=== PATIENT | male | born 1990 | race Two or more races ===

== ENCOUNTER 2016-08-27 12:55 | Emergency (ER) | payer SELFPAY ==
[~2016-08-27 12:55] MED LIST: AMOX500C PO; CIPR10DR AD
[2016-08-27] MEDS ORDERED: ONDANSETRON PF 4 MG/2 ML VIAL. IV ONE (14:00)
[2016-08-27 14:03] VITALS: BP 145/79
[2016-08-27 14:06] LABS: POTASSIUM ISTAT 3.5 mmol/L (3.5-5.0)
[2016-08-27 14:13] LABS: BILIRUBIN,URINE NEGATIVE (NEG); GLUCOSE,URINE NEGATIVE (NEG); NITRITE,URINE NEGATIVE (NEG); PROTEIN,URINE NEGATIVE (NEG-TRACE)
--- NOTE | 2016-08-27 14:15 | RAD ---
Examination: Acute abdomen series History: History of upper mid abdominal pain, nausea, vomiting Comparison: None available Findings: The cardiomediastinal silhouette grossly appears unremarkable. Faint patchy bibasal lung airspace opacity likely atelectasis or infiltrates. No evidence of free air noted under the hemidiaphragms. The bowel gas pattern appears unremarkable. Impression: 1. Few patchy bibasal lung airspace opacities likely atelectasis or infiltrates. Follow-up to resolution. 2. Unremarkable bowel gas pattern.
[2016-08-27 14:17] LABS: BARBITURATES NEG (NEG); BENZODIAZEPINES NEG (NEG); CANNABINOIDS NEG (NEG); COCAINE NEG (NEG); METHADONE NEG (NEG); OPIATES NEG (NEG); PHENCYCLIDINE NEG (NEG)
[2016-08-27 14:19] LABS: BACTERIA,URINE 0 /HPF (0-FEW); RBC,URINE 0 /HPF (0-2); SQUAMOUS EPITHELIAL CELL,UR OCC /LPF; WBC,URINE 0 /HPF (0-4)
--- NOTE | 2016-08-27 14:39 | ED.ADGEN ---
Past Medical History Past Medical History: Other Additional Past Medical Histor: BILATERAL THUMB FX, LEFT WRIST FX Past Surgical History: No Surgical History Alcohol Use: Occasionally Drug Use: Cocaine Adult General Chief Complaint Chief Complaint: NAUSEA/VOMITING/DIARRHA HPI HPI Patient is a 26 year old man, with no significant past no history, presents emergency Department with 2 days of nausea and vomiting, with abdominal cramping in the middle of his abdomen. Patient denies any fevers or chills, states that he had eaten out prior to expressing the symptoms, and states that this may have triggered his symptoms by "eating something bad". He cannot recall exactly what he ate. He denies any alcohol use, states that he occasionally will use cocaine his last use about a month ago. He denies any injuries, states that he has been constipated for the past 3 days, although he feels like "things are dropping down", so he may be having a bowel movement soon. He states he's had a total of 4-5 episodes of vomiting, food and fluid over the past 2 days, one episode today. States he is feeling mildly nauseous at this time but denies any other symptoms. Has not taken any medication prior to coming to the ED. No chest pain, no shortness of breath, no cough, no sick contacts or exposures. Review of Systems Review of Systems Constitutional: Denies fever or chills. [] Eyes: Denies change in visual acuity. [] HENT: Denies nasal congestion or sore throat. [] Respiratory: Denies cough or shortness of breath. [] Cardiovascular: Denies chest pain or edema. [] GI: Cramping mid abdominal pain, nausea, vomiting, no bloody stools or diarrhea , positive for constipation were the past 3 days. : Denies dysuria. [] Musculoskeletal: Denies back pain or joint pain. [] Integument: Denies rash. [] Neurologic: Denies headache, focal weakness or sensory changes. [] Endocrine: Denies polyuria or polydipsia. [] Lymphatic: Denies swollen glands. [] Psychiatric: Denies depression or anxiety. [] Current Medications Current Medications Current Medications Medications (Trade) Dose Ordered Sig/Ld Start Time Stop Time Status Last Admin Dose Admin Ondansetron HCl (Zofran) 4 mg 1X ONCE 08/27/16 14:00 08/27/16 14:01 DC 08/27/16 13:58 4 MG Allergies Allergies Allergies Coded Allergies Type Severity Reaction Last Updated Verified No Known Drug Allergies 08/22/14 No Physical Exam Physical Exam Constitutional: Well developed, well nourished, no acute distress, non-toxic appearance. [] HENT: Normocephalic, atraumatic, bilateral external ears normal, oropharynx moist, no oral exudates, nose normal. [] Eyes: PERRLA, EOMI, conjunctiva normal, no discharge. [] Neck: Normal range of motion, no tenderness, supple, no stridor. [] Cardiovascular:Heart rate regular rhythm, no murmur , S1, S2, no rubs or gallops. [] Lungs & Thorax: Bilateral breath sounds clear to auscultation , no wheezing, rhonchi, rales. No chest or crepitus or tenderness. [] Abdomen: Bowel sounds normal, soft, mild tenderness palpation in the epigastric and periumbilical region, no rebound, rigidity, no guarding, no masses, no pulsatile masses. [] Skin: Warm, dry, no erythema, no rash. [] Back: No tenderness, no CVA tenderness. [] Extremities: No tenderness, no cyanosis, no clubbing, ROM intact, no edema. [] Neurologic: Alert and oriented X 3, normal motor function, normal sensory function, no focal deficits noted. [] Psychologic: Affect normal, judgement normal, mood normal. [] Current Patient Data Vital Signs Vital Signs Date Time Temp Pulse Resp B/P (MAP) Pulse Ox O2 Delivery O2 Flow Rate FiO2 08/27/16 14:03 80 18 145/79 (101) 98 Room Air 08/27/16 13:13 98.7 98.7 Lab Values Laboratory Tests Test 08/27/16 13:58 08/27/16 14:00 POC Hemoglobin 16.3 g/dL (14-18) POC Hematocrit 48 % (37-52) POC Sodium 142 mmol/L (135-145) POC Potassium 3.5 mmol/L (3.5-5.0) POC Chloride 102 mmol/L (98-110) POC Total CO2 25 mmol/L (23-32) Anion Gap 19 mmol/L (6-14) H POC Blood Urea Nitrogen 17 mg/dL (8-26) POC Creatinine 0.9 mg/dL (0.5-1.4) Glucose Level 133 mg/dL (70-99) H POC Ionized Calcium (Papa) 1.21 mmol/L (1.13-1.32) Urine Collection Type Unknown Urine Color Yellow Urine Clarity Clear Urine pH 6.0 Urine Specific [place] >=1.030 Urine Protein Negative mg/dL (NEG-TRACE) Urine Glucose (UA) Negative mg/dL (NEG) Urine Ketones (Stick) Negative mg/dL (NEG) Urine Blood Negative (NEG) Urine Nitrite Negative (NEG) Urine Bilirubin Negative (NEG) Urine Urobilinogen Dipstick 1.0 mg/dL (0.2 mg/dL) Urine Leukocyte Esterase Negative (NEG) Urine RBC 0 /HPF (0-2) Urine WBC 0 /HPF (0-4) Urine Squamous Epithelial Cells Occ /LPF Urine Bacteria 0 /HPF (0-FEW) Urine Mucus Marked /LPF Urine Opiates Screen Neg (NEG) Urine Methadone Screen Neg (NEG) Urine Barbiturates Neg (NEG) Urine Phencyclidine Screen Neg (NEG) Urine Amphetamine/Methamphetamine Neg (NEG) Urine Benzodiazepines Screen Neg (NEG) Urine Cocaine Screen Neg (NEG) Urine Cannabinoids Screen Neg (NEG) Urine Ethyl Alcohol Neg (NEG) Laboratory Tests 08/27/16 13:58 EKG EKG Not indicated. Radiology/Procedures Radiology/Procedures [][facility] [id number] [place] [address] IMAGING REPORT Signed PATIENT: SWETHA DC ACCOUNT: [id number] : 1990 LOCATION: ER AGE: 26 SEX: M EXAM STATUS: REG ER ORD. PHYSICIAN: GOPI BRIONES DO REASON: abd pain/n/v PROCEDURE: ACUTE ABDOMEN SERIES Examination: Acute abdomen series History: History of upper mid abdominal pain, nausea, vomiting Comparison: None available Findings: The cardiomediastinal silhouette grossly appears unremarkable. Faint patchy bibasal lung airspace opacity likely atelectasis or infiltrates. No evidence of free air noted under the hemidiaphragms. The bowel gas pattern appears unremarkable. Impression: 1. Few patchy bibasal lung airspace opacities likely atelectasis or infiltrates. Follow-up to resolution. 2. Unremarkable bowel gas pattern. DICTATED and SIGNED BY: RAUL NEWBERRY MD DATE: 08/27/16 1418 CC: GOPI BRIONES DO; NO PCP ~ Course & Med Decision Making Course & Med Decision Making Pertinent Labs and Imaging studies reviewed. (See chart for details) Patient received Zofran in the emergency department, was tolerating oral fluids without issue. Laboratory studies were unremarkable. Acute abdominal series revealed mild atelectasis, no evidence of abdominal abnormality, patient was informed of findings instructed to follow-up with his primary care provider or one from the list given to him at discharge in one month for repeat x-ray to ensure resolution of these findings. He is not experiencing any respiratory difficulties or cough. After receiving Zofran, patient states he is feeling much better, has no pain, no nausea this time, was given clear and detailed return instructions including follow-up instructions as stated, with which he voiced understanding and agreement. Also given dietary recommendations, patient discharged home in stable condition with plan as above. Dragon Disclaimer Dragon Disclaimer This electronic medical record was generated, in whole or in part, using a voice recognition dictation system. Departure Impression: Primary Impression: Nausea & vomiting Disposition: 01 HOME, SELF-CARE Condition: IMPROVED Scripts Ondansetron Hcl (ZOFRAN) 4 Mg Tablet 1 TAB PO PRN Q6-8HRS, #12 TAB Prov: GOPI BRIONES DO 08/27/16 GOPI BRIONES DO August 27, 2016 14:39
[2016-08-27] MEDS ORDERED: ONDA4TAB7 PO (15:07)
== END 2016-08-27 15:20 | disposition home or self-care (01) ==
LOC: ER 12:55
DX: R11.2 Nausea with vomiting, unspecified (principal); F14.10 Cocaine abuse, uncomplicated; R10.13 Epigastric pain
CPT/HCPCS: 74022; 80047; 80305; 81001; 96374; 99285; J2405; G0481

== ENCOUNTER 2016-10-01 16:55 | Emergency (ER) | payer SELFPAY ==
[~2016-10-01] VITALS: Ht 188 cm; Wt 120.7 kg
[~2016-10-01 16:55] MED LIST changes: +ONDA4TAB7 PO
[2016-10-01 17:31] VITALS: BP 127/80
[2016-10-01] MEDS ORDERED: OFLO5DRO7 LEFT EAR (18:12)
--- NOTE | 2016-10-01 18:12 | PHYS DOC ---
Past Medical History Past Medical History: Other Additional Past Medical Histor: BILATERAL THUMB FX, LEFT WRIST FX Past Surgical History: No Surgical History Alcohol Use: Occasionally Drug Use: Cocaine Social History Narrative: denies drug use this visit Adult General Chief Complaint Chief Complaint: EARACHE/EAR PAIN [facility] HPI Patient is a 26 year old male presents to the emergency department stating that he has been having left ear pain for the last week. He states within the last 2 days he has had increased difficulty with hearing out of the left ear. He states his been taken ibuprofen 400 mg twice a day for the discomfort. He denies fever, chills or any upper respiratory congestion. Review of Systems Review of Systems Constitutional: Denies fever or chills [] Eyes: Denies change in visual acuity, redness, or eye pain [] HENT: Denies nasal congestion or sore throat. Complaint of left ear pain, and difficulty hearing Respiratory: Denies cough or shortness of breath [] Cardiovascular: No additional information not addressed in HPI [] GI: Denies abdominal pain, nausea, vomiting, bloody stools or diarrhea [] : Denies dysuria or hematuria [] Musculoskeletal: Denies back pain or joint pain [] Integument: Denies rash or skin lesions [] Neurologic: Denies headache, focal weakness or sensory changes [] Endocrine: Denies polyuria or polydipsia [] Allergies Allergies Allergies Coded Allergies Type Severity Reaction Last Updated Verified No Known Drug Allergies 08/22/14 No Physical Exam Physical Exam Constitutional: Well developed, well nourished, no acute distress, non-toxic appearance. [] HENT: Normocephalic, atraumatic, bilateral external ears normal, oropharynx moist, no oral exudates, nose normal. Right tympanic membrane appears to be normal, left tympanic membrane unable to visualize as the external ear canal appears to be very edematous. Eyes: PERRLA, EOMI, conjunctiva normal, no discharge. [] Neck: Normal range of motion, no tenderness, supple, no stridor. [] Cardiovascular:Heart rate regular rhythm, no murmur [] Lungs & Thorax: Bilateral breath sounds clear to auscultation [] Skin: Warm, dry, no erythema, no rash. [] Back: No tenderness Extremities: No tenderness, no cyanosis, no clubbing, ROM intact, no edema. [] Neurologic: Alert and oriented X 3, normal motor function, normal sensory function, no focal deficits noted. [] Psychologic: Affect normal, judgement normal, mood normal. [] Current Patient Data Vital Signs Vital Signs Date Time Temp Pulse Resp B/P (MAP) Pulse Ox O2 Delivery O2 Flow Rate FiO2 10/01/16 17:31 98.3 96 16 97 Room Air 98.3 EKG EKG [] Radiology/Procedures Radiology/Procedures [] Course & Med Decision Making Course & Med Decision Making Pertinent Labs and Imaging studies reviewed. (See chart for details) Spoke with patient in regards to placing a wick into the ear to help with medication administration. At this time the department does not have a wick in which we can placed in the ear. Patient will be discharged home in stable condition with recommendations for ear drops into the left ear. Signs and symptoms to return back to the emergency department as been provided. Patient agrees with discharge instructions treatment regimens and follow-up recommendations. Also recommended ibuprofen 800 mg every 8 hours with food as this may cause an upset stomach. If this does occur stopped taking the medication. [] Dragon Disclaimer Dragon Disclaimer This electronic medical record was generated, in whole or in part, using a voice recognition dictation system. Departure Departure Impression: Primary Impression: External otitis of left ear Disposition: 01 HOME, SELF-CARE Condition: STABLE Referrals: NO PCP (PCP) Patient Instructions: Otitis Externa, [id number] Additional Instructions: Activity as tolerated. Ibuprofen 800 mg every 8 hours. Take this medication with food as it may cause an upset stomach. If the upset stomach does occur stopped taking the medication. Eardrops as prescribed. Follow-up to primary care physician in the next 5-7 days. Return back to emergency department signs and symptoms of become worse. Scripts Ofloxacin (OFLOXACIN) 5 Ml Drops 5 DROP LEFT EAR BID, #[address] drops into the left ear for the next 7 days. Prov: ALLY CALVERT APRN 10/01/16 ALLY CALVERT DRIVER/MERCHANDISER Oct 01, 2016 18:12
== END 2016-10-01 18:16 | disposition home or self-care (01) ==
LOC: ER 16:55
DX: H60.92 Unspecified otitis externa, left ear (principal); F14.10 Cocaine abuse, uncomplicated
CPT/HCPCS: 99283

== ENCOUNTER 2018-10-22 16:20 | Emergency (ER) | payer MEDICAID ==
[~2018-10-22] VITALS: Ht 190.5 cm; Wt 117.9 kg
[~2018-10-22 16:20] MED LIST changes: +OFLO5DRO7 LEFT EAR
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
[2018-10-22] MEDS ORDERED: MORPHINE SULFATE 4 MG/ML VIAL. IV ONE ×2 (17:15→19:00)
[2018-10-22 17:19] LABS: BASO # 0.1 x10^3/uL (0.0-0.2); BASO % 1 % (0-3); EOS # 0.1 x10^3/uL (0.0-0.7); EOS % 1 % (0-3); HEMATOCRIT 30.6 % (39.0-53.0); HEMOGLOBIN 10.5 g/dL (13.0-17.5); LYMPH # 2.1 x10^3/uL (1.0-4.8); LYMPH % 24 % (24-48); MEAN CORPUSCULAR HEMOGLOBIN 28 pg (25-35); MEAN CORPUSCULAR HGB CONC 34 g/dL (31-37); MEAN CORPUSCULAR VOLUME 82 fL (79-100); MONO # 0.7 x10^3/uL (0.0-1.1); MONO % 8 % (0-9); NEUT % 67 % (31-73); PLATELET COUNT 481 x10^3/uL (140-400); RED BLOOD COUNT 3.75 x10^6/uL (4.30-5.70); WHITE BLOOD COUNT 8.9 x10^3/uL (4.0-11.0)
[2018-10-22 17:29] LABS: CALCIUM 8.9 mg/dL (8.5-10.1); CREATININE 0.8 mg/dL (0.7-1.3); GFR 115.1; POTASSIUM 3.8 mmol/L (3.5-5.1)
[2018-10-22 17:33] LABS: PROTHROMBIN TIME PATIENT 13.7 SEC (11.7-14.0)
[2018-10-22 17:35] LABS: ALBUMIN 3.1 g/dL (3.4-5.0); ALBUMIN/GLOBULIN RATIO 0.8 (1.0-1.7); TOTAL BILIRUBIN 0.8 mg/dL (0.2-1.0); TOTAL PROTEIN 7.1 g/dL (6.4-8.2)
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
[2018-10-22] MEDS ORDERED: HYDR-3164 PO (20:00)
[2018-10-22 20:10] VITALS: BP 188/91
== END 2018-10-22 20:15 | disposition home or self-care (01) ==
LOC: ER 16:20
DX: S70.11XA Contusion of right thigh, initial encounter (principal); W05.0XXA Fall from non-moving wheelchair, initial encounter; Y93.89 Activity, other specified; Y92.89 Other specified places as the place of occurrence of the external cause; Y99.8 Other external cause status; M25.561 Pain in right knee
CPT/HCPCS: 36415; 73552; 73562; 80053; 85025; 85610; 85730; 93971; 96374; 96376; 99285; J2270